=== PATIENT | female | born 1995 | race Asian ===

== ENCOUNTER 2023-06-06 05:59 | Inpatient (IN) | payer OTHER, SELFPAY ==
[2023-06-06] VITALS (23 sets, daily range): BP systolic 79–114; BP diastolic 43–73; PULSE 58–124; RESP 18; TEMP 36.7–37; O2SAT 96; BMI 28.0
[2023-06-06 07:12] LABS: Basophils Percent Auto 0.3 % (0.2-1.2); Eosinophils Absolute Auto 0.1 K/mm3 (0-0.3); Eosinophils Percent Auto 0.8 % (0-4.4); Hematocrit 35.2 % (37.0-47.0); Hemoglobin 10.8 g/dL (12.0-15.0); Immature Granulocyte Absolute 0.05 K/mm3 (0.00-0.031); Immature Granulocyte Percent A 0.5 % (0-0.5); Lymphocytes Absolute Auto 2.04 K/mm3 (0.9-3.2); Lymphocytes Percent Auto 21.4 % (18.3-44.2); Mean Corpuscular HGB Conc 30.7 g/dl (32-36); Mean Corpuscular Hemoglobin 25.7 pg (26-34); Mean Corpuscular Volume 83.6 fl (80-100); Mean Platelet Volume 10.6 fl (7.4-10.4); Monocytes Absolute Auto 0.7 K/mm3 (0.1-0.6); Monocytes Percent Auto 7.4 % (2.6-8.5); Neutrophils Absolute Auto 6.6 K/mm3 (1.3-6.7); Neutrophils Percent Auto 69.6 % (45.5-73.1); Platelet Count Result 198 k/mm3 (150-375); Red Blood Count 4.21 M/mm3 (4.2-5.4); Red Cell Distribution Width 16.6 % (11.5-14.5); White Blood Count 9.5 K/mm3 (4.5-10.0)
--- NOTE | 2023-06-06 07:17 | LDADM ---
This patient, Lizzy Cassy, was admitted to Labor/Delivery/Recovery 105 on 06/06/23 at 05:59. Plans for labor, pain management and were discussed with patient. Patient/family oriented to hospital policies and general routines including ID bracelet, bed and alarms, visiting hours, pain management, procedures, bathroom and other care routines, personal items, smoking policy, room service/diet and guest tray routines, infant security routines, and visiting hours. Patient/Family are encouraged to report perceived risks to care and to ask questions if they do not understand what they are told or what they should do. See OBIX for further documentation.
--- NOTE | 2023-06-06 08:29 | WPDOBADMIT ---
Obstetrics - Admit Note Admission Note: record reviewed. Additions to the history and/or subsequent changes in the physical findings follow. 27 y/o at 39 4/7 weeks here with contractions since 0500. Contractions painful but manageable. GBS neg. AVSS NST reactive TOCO: contractions every 4-5 min ABD soft, nontender, gravid, vertex EXT nontender Cervix 8/100/-1. AROM with clear fluid. A: IUP at term with labor. P: Anticipate .
[2023-06-06] MEDS: DEXTROSE 5%/LACTATED RINGERS 1,000 ML 100 ML IV CONT (09:36)
[2023-06-06] MEDS: OXYTOCIN 30 UNITS/NS 500 ML 30 UNITS/500 ML BAG 999 UNITS IV CONT (10:33)
--- NOTE | 2023-06-06 10:48 | PM.OBPRVD ---
OB - Delivery Note Procedure Delivery date: 06/06/23 Procedure: Induction method: None Delivery augmentation: Rupture of Membranes Delivery monitor: External FHT and External Uterine Route of delivery: Laceration Description: Perineal - 2nd Degree Delivery repair: vicryl (3-0) Specimen: Yes (Cord blood) Quantitative Blood Loss (ml): 120 Anesthesia type: Local (1% lidocaine) Disposition: PACU Complications: None Narrative: 27 y/o at 39 4/7 weeks gestation who presented to the hospital with contractions. Labor was diagnosed. Amniotomy was performed with return of clear fluid. Her labor progressed and her cervix dilated completely. She pushed with good effort and delivered the infant's head to the perineum, followed by the body. The nose and mouth were bulb suctioned. After a delay, the cord was clamped and cut. The infant was handed off the field. Cord blood was collected. The placenta delivered spontaneously and was grossly normal in appearance. The usual 3 vessel cord was noted. A second degree midline perineal laceration was sustained. This was infiltrated with 10 mL of 1% lidocaine and reapproximated using 3 0 Vicryl in the usual layered fashion. Excellent hemostasis resulted as did excellent reapproximation of the normal anatomy. Needle and instrument counts were correct. The patient was taken to recovery room in stable condition. The infant went to the nursery in stable condition. I was present and scrubbed for the entire delivery. Baby Date of : 06/06/23 Time of : 10:29 Weeks of gestation at delivery: 39 Infant gender: Male Weight (pounds): 8 Weight (ounces): 2 presentation: vertex position: Right Occiput Anterior Placenta delivery description: Spontaneous and Normal Configuration Cord Vessel Description: 3 Vessels and Delayed Cord Clamping score one minute: 9 score five minutes: 9
--- NOTE | 2023-06-06 10:50 | P.DS_ITS ---
DS: Admitting Diagnosis Discharge Date 06/08/23 Admitting Diagnosis IUP at term Labor DS: Discharge Diagnosis Discharge Diagnosis (1) (normal spontaneous vaginal delivery): Code(s): O80 - Encounter for full-term uncomplicated delivery Status: Acute OB - DS: Summary OB Procedures : None OB Procedures Intrapartum: Spontaneous Vag Delivery OB Procedures: : None Time Spent with Patient Time attestation: Total time spent providing and/or coordinating discharge services: DS: Data Data Completed and Pending Labs on day of discharge: Labs from last 24 hours 06/06/23 07:05 WBC 9.5 RBC 4.21 Hgb 10.8 L Hct 35.2 L MCV 83.6 MCH 25.7 L MCHC 30.7 L RDW 16.6 H Plt Count 198 MPV 10.6 H Immature Gran % (Auto) 0.5 Neut % (Auto) 69.6 Lymph % (Auto) 21.4 Bailey % (Auto) 7.4 Eos % (Auto) 0.8 Baso % (Auto) 0.3 Lymph # (Auto) 2.04 Bailey # (Auto) 0.7 H Eos # (Auto) 0.1 Baso # (Auto) 0.0 Abs Immat Gran (auto) 0.05 H Absolute Neuts (auto) 6.6 Absolute Nucleated RBC 0.0 Nucleated RBC % 0.0 RPR Pending Blood Type AB Positive Antibody Screen Negative Discharge Plan Discharge Attending physician on discharge: Guanako De Discharging Clinician: Guanako De Patient Disposition: Home, Self-Care Activity: pelvic rest Diet: regular Discharge Instructions: Call or return if temperature above 100.4? F, increased abdominal pain, increased vaginal bleeding or any new problems. Stand Alone Forms: General Discharge Information Follow-up/Referrals: Guanako De MD [Physician] - 6 Weeks Discharge Medications: New ibuprofen 600 mg tablet 600 mg PO Q6H PRN (Reason: cramps) Qty: 30 0RF Continued Daily [phone] mg-mcg-mg Combo Pack 1 pkg PO DAILY Date of admission: 06/06/23 05:59 Primary Care Provider: PHYSICIAN,CLARIFIER OPERATOR HELPER Admitting Provider: Guanako De Attending physician on admission: Guanako De Condition: Stable
[2023-06-06] MEDS: LIDOCAINE HCL 1% LOCAL INJ 20 ML VIAL (10:53)
[2023-06-06] MEDS: OXYTOCIN 30 UNITS/NS 500 ML 30 UNITS/500 ML BAG 125 UNITS IV CONT (11:16)
[2023-06-06] MEDS: BENZOCAINE 20% AER SPR (*SP) 56 GM CAN 1 SPRAY TOPICAL (13:05)
[2023-06-06] MEDS: WITCH HAZEL 40 PADS 1 PAD TOPICAL ×2 (13:05→14:44)
--- NOTE | 2023-06-06 13:33 | OBPPTRN ---
Patient transferred to post room # 284 via wheelchair. Oriented to unit, room, information board, rooming in, admission packet and security measures. Patient verbalizes understanding.
[2023-06-07 00:15] VITALS: BP 92/59; PULSE 78; RESP 18; TEMP 36.8; O2SAT 97
[2023-06-07 03:10] VITALS: BP 102/61; PULSE 71; RESP 18; TEMP 36.2; O2SAT 98
[2023-06-07 03:30] LABS: Hematocrit 34.2 % (37.0-47.0); Hemoglobin 10.5 g/dL (12.0-15.0)
[2023-06-07 07:50] VITALS: BP 93/57; PULSE 67; RESP 16; TEMP 37.1; O2SAT 98
--- NOTE | 2023-06-07 08:51 | PM.OBPNVD ---
OB - PN: Subj Subjective Date/time seen: 06/07/23 08:51 Narrative: Pain OK. Would like circumcision for son. OB - PN: Obj Data Labs 06/07/23 03:17 Labs: Laboratory Results - last 24 hr 06/07/23 03:17 Hgb 10.5 L Hct 34.2 L OB - PN A/P Plan day: 1 Comments: A: PPD#1, doing well. P: Routine care. Reviewed circ. Exam Psych: Other: AVSS ABD soft, nontender, fundus firm EXT nontender
[2023-06-07 09:44] LABS: Rapid Plasma Reagin Non-Reactive (NonReactive)
--- NOTE | 2023-06-07 12:49 | PC.NURSE ---
1210 Introductions were made, then consulted with patient to assess needs related to . Mother led the conversation with her?plans to feed?her and the?experience so far. Discussed use of nipple shield. Mom states that right breast is more of an an issue than the left and will call with next attempt to feed . Baby sleeping at present. Resources provided for inpatient and outpatient services with the feeding sheet, mom/baby guide and name written on the white board. Mother voiced understanding of information and will call if there is a request for assistance. Reported to the primary RN.
[2023-06-07 20:00] VITALS: BP 99/60; PULSE 71; RESP 16; TEMP 36.3; O2SAT 99
[2023-06-08 08:15] VITALS: BP 100/61; PULSE 68; RESP 18; TEMP 36.3; O2SAT 98
--- NOTE | 2023-06-08 08:29 | PM.OBPNVD ---
OB - PN: Subj Subjective Date/time seen: 06/08/23 08:29 Narrative: Pain OK. Would like to go home. OB - PN: Obj Data Labs 06/07/23 03:17 Labs: Laboratory Results - last 24 hr 06/06/23 07:05 RPR Non-reactive OB - PN A/P Plan Comments: A: PPD#2, doing well. P: Home to f/u 6 weeks. Exam Psych: Other: AVSS ABD soft, nontender, fundus firm EXT nontender
--- NOTE | 2023-06-08 11:07 | PCCCNOTE ---
Met with pt. this morning to discuss discharge planning. Pt.'s current D/C plan is to return home with her sig other, 2 year old baby, and baby. Pt. is independent with ADLs and ambulation. She has no medical equipment at home. She confirms that she has everything needed to safely bring baby home. Pt. requested resources regarding WIC, resources provided and questions answered. Pt. will D/C today and has no further D/C needs.
--- NOTE | 2023-06-08 13:31 | PC.NURSE ---
1015 Introductions were made, then consulted with patient to assess needs related to . Mother led the conversation with her?plans to feed?her infant and the?experience so far. Infant is currently meeting outcomes for weight, output, jaundice and feeding frequencies of 8-12 times in 24 hours. Mother declines any additional assistance/education at this time. Mother encouraged to call if there is a request for assistance. Mother did request WIC form to be completed and to have an insurance pump. Reported to the primary RN. 1210 Insurance pump form completed but mother wants to wait and sign until she checks with her insurance. She was on [employer] [facility] insurance 2.5 years ago and received a breast pump, she is now on [place]. She has her follow up appointment tomorrow, this RN has the paperwork filled out and mother to let the follow up RN know if she still needs a breast pump. 1250 WIC sheet faxed to [facility] and placed in mothers chart.
[2023-06-09 10:20] VITALS: BP 103/66; PULSE 76; RESP 18; TEMP 36.7; O2SAT 100
--- NOTE | 2023-06-09 11:43 | PC.NURSE ---
1015 Elder Klein RN who saw patient today for her follow up visit called to let this RN know that the patient declined the insurance pump from the hospital and she has ordered her own online.
== END 2023-06-08 12:52 | disposition home or self-care (01) | DRG 560 ==
LOC: ANHLDR 10:51 → ANHOB2 13:43
PROVIDERS: Admitting Provider Obstetrics & Gynecology; Visit Provider Obstetrics & Gynecology
DX: O70.1 Second degree perineal laceration during delivery (principal); Z37.0 Single live birth; Z3A.39 39 weeks gestation of pregnancy
CPT/HCPCS: 36415; 85014; 85018; 85025; 86592; 86850; 86900; 86901; A9270; J2590; J7121

== ENCOUNTER 2025-07-10 09:51 | Outpatient (CLI) | payer OTHER, SELFPAY ==
--- OUTSIDE RECORDS SUMMARY | 2025-07-10 10:16 | XMS_ITS | Encounter Summary ---
Author Organization [facility] Address [address] [place] [address] Care Team Providers Care Veneer Production Machine Operator Name Role Phone Janak Whiting DO Primary Care Provider [phone] Encounter Details Date Type Department Care Team (Late st Contact Info) Description 01/12/2008 Outpatient Historical [facility] Pediatric[facility] [address] [place] [address] [place] [address] [address] [facility] [address] [place] [address] Social History Tobacco Use Types Packs/Day Years Used Date Smoking Tobacco: Never Assessed Comments No Sex and Gender Information Value Date Recorded Sex Assigned at Not on file Legal Sex Female 4:50 AM STONE RIGGER Gender Identity Not on file Sexual Orientation Not on file documented as of this encounter Plan of Treatment Not on file documented as of this encounter Visit Diagnoses Not on filedocumented in this encounter Care Teams Veneer Production Machine Operator Relationship Specialty Start Date End Date Janak Whiting DO PCP - General 07/03/08 03/30/19 documented as of this encounter
--- OUTSIDE RECORDS SUMMARY | 2025-07-10 10:16 | XMS_ITS | Clinical Summary ---
Author Organization [email or web address] Address [address] [facility] [place] [address] Care Team Providers Care Shipping Agent Name Role Phone Bhargavi Vasquez MD Unavailable [phone] Becky Wilder MD Primary Care Provider [phone] Source Comments [email or web address],non-owned Affiliates and Associated Physician Practices is amultiple site organization consisting of ambulatory clinics and hospital sitesin [place], [place], [place] and [place]. This disclosure is being madepursuant to the Care Everywhere program and may not contain all information available regarding this patient. Last updated 18.[email or web address] Allergies No known active allergies Medications * Be aware that medications may not be up to date on this document. Alwaysverify current medications with the patient. Vit-Fe Usa-SK-Tvepa ( MULTI +DHA) 27-0.8-228 MG CAPSIndications : Take 1 capsule by mouth once daily Reasons: 30 capsule 12 0 Active ondansetron (Zofran) 4 MG tablet Take 1 (one) tablet by mouth every 6 hours as needed for Nausea/Vomitin g 30 tablet 1 2 Active Active Problems Problem Noted Date Diagnosed Date Depressive disorder 10/09/2022 Comments Yes Resolved Problems Problem Noted Date Diagnosed Date Resolved Date Encounter for elective induction of labor 11/13/2020 11/14/2020 Abnormal glucose affecting 08/21/2020 11/14/2020 Overview (08/21/2020): 08/21/2020: GCT = 183. GTT ordered. Supervision of other normal , antepartum 04/02/2020 11/14/2020 Overview (08/27/2020): 08/27/2020: size<dates on exam. ultrasound shows baby AGA. 33%ile Urinary tract infection in m other during first trimester of 04/02/2020 11/14/2020 Overview (05/02/2020): 05/02/2020: UTI in again. E coli - multi-drug resistant. Sensitive to Macrobid. Immunizations Immunization Administration Dates Next Due HEP A PEDS 2 DOSE 08/05/2007 HEP A VACCINE, ADULT 03/17/2006 HEP B VACCINE, ADULT 3 DOSE 01/22/2004, 3,07/24/2003 Human Papilloma Virus Keanu valent Vaccine 01/28/2011,09/03/2010,10/23/2009 INFLUENZA VACCINE, QUADR. (F LUZONE; FLULAVAL; FLUARIX; AFLURIA QUADRIVALENT; 6MO+), 0.5 ML (IIV4) 08/27/2020 INFLUENZA VACCINE, TRIV. (FL UZONE; FLULAVAL; FLUARIX; AFLURIA TRIVALENT; 6MO+), 0.5 ML (IIV3) 09/26/2017 MENINGOCOCCAL VACCINE 08/05/2007 MMR 08/25/2005,06/17/2005 POLIO IPV 09/22/2005,08/25/2005,06/17/2005 TDAP (7yrs+) 08/27/2020 TDAP, HISTORIC VACCINE 09/03/2010 Td (Adult), 2 Lf Tetanus Tox oid, Adsorbed, Pf 08/05/2007,03/17/2006,08/25/2005,06/17 Family History Medical History Relation Name Comments Thalassemia Brother 1 CVA Father High Cholesterol Father Hypertension Father Relation Name Status Comments Brother 1 Alive Brother 2 car accident Father Alive Mother Alive Social History Tobacco Use Types Packs/Day Years Used Date Smoking Tobacco: Former Cigarettes Smokeless Tobacco: Never Tobacco Cessation:Counseling Given: Not Answered Comments:her boyfriend smokes Alcohol Use Standard Drinks/Week Comments Not Currently 0 (1 standard drink = 0.6 oz pur e alcohol) Robards Depression Scale Answer Date Recorded Last EPDS Total Score Not on file 12/24/2020 The thought of harming myself has occurred to me . 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 Not on file Not on file Last Filed Vital Signs Vital Sign Reading Time Taken Comments Blood Pressure 110/76 11/03/2022 4:32 PM SQUASH CENTRE MANAGER Pulse 81 11/15/2020 7:40 AM SQUASH CENTRE MANAGER Temperature 36.8 C (98.2 F) 11/15/2020 7:40 AM SQUASH CENTRE MANAGER Respiratory Rate 18 11/15/2020 7:40 AM SQUASH CENTRE MANAGER Oxygen Saturation 98% 11/15/2020 7:40 AM SQUASH CENTRE MANAGER Inhaled Oxygen Concentration - - Weight 56.2 kg (124 lb) 11/03/2022 4:32 PM SQUASH CENTRE MANAGER Height 157.5 cm (5' 2) 11/03/2022 4:32 PM SQUASH CENTRE MANAGER Body Mass Index 22.68 11/03/2022 4:32 PM SQUASH CENTRE MANAGER Plan of Treatment Health Maintenance Due Date Last Done Comments HEPATITIS C SCREENING 09/12/2014 COVID-19 VACCINE ( season) 2024 06/30/2021 DEPRESSION SCREENING 11/22/2024 INFLUENZA VACCINE (#1) 2025 08/27/2020, 2016 PAP SMEAR 11/03/2025 11/03/2022, 10/22, 04/02/2020, Additional history exists DTAP/TDAP/TD VACCINES (6 - Td or Tdap) 08/27/2030 08/27/2020, 09/03/2010, 08/05/2007, Additional history exists ZOSTER VACCINE (1 of 2) 2046 Respiratory Syncytial Virus (RSV) Vaccine Pt: or over 60 yrs (1 - 1-dose 75+ series) 2071 HEPATITIS B VACCINE Completed 01/22/2004, 08/24/2003, 07/24/2003 MENINGOCOCCAL GROUPS A/C/Y/W VACCINE Aged Out 08/05/2007 No longer eligible based on patient's age to complete this topic HPV VACCINE Completed 01/28/2011, 08/22, 10/23/2009 HIV SCREENING Completed 04/02/2020 HIB VACCINE Aged Out No longer eligi ble based on patient's age to complete this topic MENINGOCOCCAL (Group B) VACCINE SHARED DECISION-MAKING Aged Out No longer eligible based on patient's age to complete this topic PNEUMOCOCCAL VACCINE Aged Out No long er eligible based on patient's age to complete this topic Procedures Procedure Name Priority Date/Time Associated Diagnosis Comments PAP CERVICAL CANCER SCREEN APT Routine 11/03/2022 4:39 PM SQUASH CENTRE MANAGER Well woman exam with routine gynecological exam examination or test, positive result STREP B ZARI Routine 10/15/2020 9:52 AM SQUASH CENTRE MANAGER Supervision of other normal , antepartum 36 weeks gestation of GTT 3 HR (100G) GESTATIONAL DIAGNOSTIC Routine 08/26/2020 10:52 AM CDT Abnormal glucose affecting OBSTETRIC PANEL Routine 04/02/2020 12:58 PM CDT Incidental from Last 3 Months or Most Recently Relevant to Health Maintenance Results * PAP CERVICAL CANCER SCREEN APT (11/03/2022 4:39 PM SQUASH CENTRE MANAGER) Age Gdln ACOG Testing 21-29 [facility] INSURANCE BILL ENTIRE ENDOCERVIX / Unknown 11/03/2022 4:39 PM SQUASH CENTRE MANAGER 11/04/2022 Narrative [facility] INSURANCE BILL - 11/11/2022 3:08 PM SQUASH CENTRE MANAGER Source.............Cervix;Endocervix LMP / Prev Treat...LTM=[id number] Other.............. No. of containers..01 ThinPrep Vial Resulting Agency Comment Lab Testing performed at: [address] [id number] Bhargavi Vasquez MD LAB - PATHOLOGY/CYTOLOGY ORD ERABLES Final Result [facility] INSURANCE BILL [address] [place] [address] * STREP B ZARI (10/15/2020 9:52 AM SQUASH CENTRE MANAGER) Strep B ZARI Negative Negative [facility] INSURANCE BILL Comment: Centers for Disease Control and Prevention (CDC) and [place] [employer] of Obstetricians and Gynecologists (ACOG) guidelines for prevention of group B streptococcal (GBS) disease specify co-collection of a vaginal and rectal swab specimen to maximize sensitivity of GBS detection. Per the CDC and ACOG, swabbing both the lower vagina and rectum substantially increases the yield of detection compared with sampling the vagina alone. . Penicillin G, ampicillin, or cefazolin are indicated for intrapartum prophylaxis of GBS colonization. Reflex susceptibility testing should be performed prior to use of clindamycin only on GBS isolates from penicillin-allergic women who are considered a high risk for anaphylaxis. Treatment with vancomycin without additional testing is warranted if resistance to clindamycin is noted. Microbiology MISCELLANEOUS SAMPLES / Unknown 10/15/2020 9:52 AM SQUASH CENTRE MANAGER 10/15/2020 Narrative Resulting Agency Comment Lab Testing performed at: [facility] [id number] Bhargavi Vasquez MD LAB - MICROBIOLOGY ORDERABLE S Final Result Performing Organization Address City/State/[facility] Co de Phone Number [facility] INSURANCE BILL [address] [place] [address] * GTT 3 HR (100G) GESTATIONAL DIAGNOSTIC (08/26/2020 10:52 AM CDT) Glucose Fasting Gest Tolerance 83 65 - 94 mg/dL [facility] INSURANCE BILL GTT1Hr 146 65 - 179 mg/dL [facility] INSURANCE BILL Glucose - 2 hour 104 65 - 154 mg/dL [facility] INSURANCE BILL GTT 3Hr 84 65 - 139 mg/dL [facility] INSURANCE BILL Note [facility] INSURANCE BILL Comment: For diagnosis of gestational diabetes, at least two values must meet or exceed normal limits, which is based on 100 gm of oral glucose challenge. FASTING Blood BLOOD SPECIMEN / Unknown 08/26/2020 10:52 AM CDT 08/26/2020 Narrative Resulting Agency Comment Lab Testing performed at: [facility] [id number] Bhargavi Vasquez MD LAB - CHEMISTRY ORDERABLES F inal Result [facility] INSURANCE BILL [address] [place] [address] * OBSTETRIC PANEL (04/02/2020 12:58 PM CDT) Hepatitis B Virus Surface Antigen Negative Negative [facility] INSURANCE BILL RPR Non Reactive Non Reactive [facility] INSURANCE BILL Rubella Antibody 8.46 Immune >0.99 index [facility] INSURANCE BILL Comment: Non-immune <0.90 Equivocal 0.90 - 0.99 Immune >0.99 ABO AB [facility] INSURANCE BILL Rh Type Positive [facility] INSURANCE BILL Comment: Please note: Prior records for this patient's ABO / Rh type are not available for additional verification. Antibody Screen Negative Negative [facility] INSURANCE BILL HIV Screen 4th Generation w Reflex Non Reactive Non Reactive [facility] INSURANCE BILL WBC 9.3 3.4 - 10.8 x10E3/uL [facility] INSURANCE BILL RBC 4.55 3.77 - 5.28 x10E6/uL [facility] INSURANCE BILL Hemoglobin 14.1 11.1 - 15.9 g/dL [facility] INSURANCE BILL Hematocrit 42.4 34.0 - 46.6 % [facility] INSURANCE BILL MCV 93 79 - 97 fL [facility] INSURANCE BILL MCH 31.0 26.6 - 33.0 pg [facility] INSURANCE BILL MCHC 33.3 31.5 - 35.7 g/dL [facility] INSURANCE BILL RDW 12.6 11.7 - 15.4 % [facility] INSURANCE BILL Platelet Count 195 150 - 450 x10E3/uL [facility] INSURANCE BILL Granulocytes % 71 Not Estab. % [facility] INSURANCE BILL Lymphocytes % 21 Not Estab. % [facility] INSURANCE BILL Monocytes % 6 Not Estab. % [facility] INSURANCE BILL Eosinophils % 1 Not Estab. % [facility] INSURANCE BILL Basophils % 1 Not Estab. % [facility] INSURANCE BILL Immature Cells NOT NEEDED [facility] INSURANCE BILL Comment:Ancillary determined the test is not needed. Granulocytes Absolute 6.7 1.4 - 7.0 x10E3/uL [facility] INSURANCE BILL Lymphocytes Absolute 1.9 0.7 - 3.1 x10E3/uL [facility] INSURANCE BILL Monocytes Absolute 0.5 0.1 - 0.9 x10E3/uL [facility] INSURANCE BILL Eosinophils Absolute 0.1 0.0 - 0.4 x10E3/uL [facility] INSURANCE BILL Basophils Absolute 0.1 0.0 - 0.2 x10E3/uL [facility] INSURANCE BILL Immature Granulocytes 0 Not Estab. % [facility] INSURANCE BILL Immature Granulocytes Absolute 0.0 0.0 - 0.1 x10E3/uL [facility] INSURANCE BILL nRBC NOT NEEDED [facility] INSURANCE BILL Comment:Ancillary determined the test is not needed. Comment Hematology NOT NEEDED [facility] INSURANCE BILL Comment: FASTING Ancillary determined the test is not needed. Blood BLOOD SPECIMEN / Unknown 04/02/2020 12:58 PM CDT 04/02/2020 Narrative Resulting Agency Comment Lab Testing performed at: [facility] [address] [facility] [phone] [place] Bhargavi Vasquez MD LAB - CHEMISTRY ORDERABLES F inal Result [facility] INSURANCE BILL [address] [place] [address] from Last 3 Months or Most Recently Relevant to Health Maintenance Additional Health Concerns Infection Onset Date Last Indicated ESBL GNR 04/01/2020 04/01/2020 MDRO 04/01/2020 04/01/2020 Insurance [place]ICAID [facility] COMMUNITY PLAN Advance Directives * Full Code (Latest Code Status on File) Date Activated Date Inactivated Comments 11/13/2020 8:36 AM 11/15/2020 3:18 PM Care Teams Shipping Agent Relationship Specialty Start Date End Date Becky Wilder MD [address] [place] [address] PCP - General Internal Medicine 11/03/22 Bhargavi Vasquez MD [address] [place] [address] Continuous Yarn Dyeing Machine Operator Obstetrics and Gynecology 04/02/20
--- OUTSIDE RECORDS SUMMARY | 2025-07-10 10:16 | XMS_ITS | Encounter Summary ---
Author Organization [facility] Address [address] [place] [address] Care Team Providers Care Blind Teacher Name Role Phone Janak Whiting DO Primary Care Provider [phone] Encounter Details Date Type Department Care Team (Late st Contact Info) Description 08/05/2007 Outpatient Historical [facility] [address] [place] [address] Janak Whiting DO [address] [place] [address] Social History Tobacco Use Types Packs/Day Years Used Date Smoking Tobacco: Never Assessed Comments Unknown Sex and Gender Information Value Date Recorded Sex Assigned at Not on file Legal Sex Female 4:50 AM URGENT CARE NURSE PRACTITIONER Gender Identity Not on file Sexual Orientation Not on file documented as of this encounter Plan of Treatment Not on file documented as of this encounter Procedures Procedure Name Priority Date/Time Associated Diagnosis Comments CHG MENINGOCOCCAL CONJUG VACCINE IM VFC 08/05/2007 12:00 AM CDT CHG TDAP VACCINE >7 YO IM VFC 08/05/2007 12:00 AM CDT CHG HEPATITIS A VACCINE PED ADOL IM 2 DOSE VFC 08/05/2007 12:00 AM CDT documented in this encounter Visit Diagnoses Not on filedocumented in this encounter Care Teams Blind Teacher Relationship Specialty Start Date End Date aJnak Whiting DO PCP - General 07/03/08 03/30/19 documented as of this encounter
--- OUTSIDE RECORDS SUMMARY | 2025-07-10 10:16 | XMS_ITS | Encounter Summary ---
Author Organization [facility] Address [address] [place] [address] Care Team Providers Care Circulation Tender Name Role Phone Janak Whiting DO Primary Care Provider +1- [phone] Encounter Details Date Type Department Care Team (Late st Contact Info) Description 01/12/2008 Outpatient Historical [facility] Pediatrics [facility] [address] [place] [address] [place] [address] [place] [address] [facility] [address] [place] [address] Social History Tobacco Use Types Packs/Day Years Used Date Smoking Tobacco: Never Assessed Comments No Sex and Gender Information Value Date Recorded Sex Assigned at Not on file Legal Sex Female 4:50 AM FEATHER DRYING MACHINE OPERATOR Gender Identity Not on file Sexual Orientation Not on file documented as of this encounter Plan of Treatment Not on file documented as of this encounter Visit Diagnoses Not on filedocumented in this encounter Care Teams Circulation Tender Relationship Specialty Start Date End Date Janak Whiting DO PCP - General 07/03/08 03/30/19 documented as of this encounter
--- OUTSIDE RECORDS SUMMARY | 2025-07-10 10:16 | XMS_ITS | Encounter Summary ---
Author Organization [facility] Address [address] [place] [address] Care Team Providers Care Operator Technician Name Role Phone Janak Whiting DO Primary Care Provider +1- [phone] Encounter Details Date Type Department Care Team (Late st Contact Info) Description 03/17/2006 Outpatient Historical [facility] Pediatrics [place] [address] [place] [address] Janak Whiting DO [address] [place] [address] Social History Tobacco Use Types Packs/Day Years Used Date Smoking Tobacco: Never Assessed Comments Unknown Sex and Gender Information Value Date Recorded Sex Assigned at Not on file Legal Sex Female 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
--- OUTSIDE RECORDS SUMMARY | 2025-07-10 10:16 | XMS_ITS | Clinical Summary ---
Author Organization [facility] Administrative Offices Address [address] [place] [address] Care Team Providers Care Business Database Analyst Name Role Phone Unavailable Primary Care Provider Unavailabl e Allergies No known active allergies Medications No known medications Active Problems No known active problems Resolved Problems Problem Noted Date Diagnosed Date Resolved Date Other acne 01/12/2008 10/23/2009 Well Child Check 08/05/07 08/05/200712/2008 Immunizations Immunization Administration Dates Next Due (IPOL)(6 WKS AND UP) POLIOVI BERHANE VACCINE, INACTIVATED (IPV), 3 DOSE, SUBCUT OR IM 09/22/2005,08/25/2005,06/17/2005 (M-M-R II/PRIORIX)(12 MO UP) MEASLES, MUMPS AND RUBELLA VIRUS VACCINE, 0.5 ML IM/SUBCUT 08/25/2005,06/17/2005 (TDVAX)(7 YRS UP) TETANUS AN D DIPHTHERIA TOXOIDS, ADSORBED (2 LF OF TETANUS TOXOID AND 2 LF OF DIPHTHERIA TOXOID), 0.5ML (PF), IM 08/05/2007,03/17/2006,08/25/2005,06/17 HPV Vaccine 3 Dose IM VFC 01/28/2011,09/03/2010, 10/23/2009 Hepatitis A Vaccine 08/05/2007,03/17/2006 Hepatitis B Vaccine 01/22/2004,08/24/2003,2002 History of Chickenpox 11/20/2006 Meningococcal ACWY Vaccine, Unspecified Formulation 08/05/2007 Tdap Vaccine > 7 Yo IM VFC 09/03/2010 Social History Tobacco Use Types Packs/Day Years Used Date Smoking Tobacco: Never Alcohol Use Standard Drinks/Week Comments Not Asked 0 (1 standard drink = 0.6 oz pur e alcohol) Comments No Sex and Gender Information Value Date Recorded Sex Assigned at Not on file Legal Sex Female 4:50 AM MEDICAL HISTORIAN Gender Identity Not on file Sexual Orientation Not on file Last Filed Vital Signs Vital Sign Reading Time Taken Comments Blood Pressure 99/53 01/28/2011 2:13 PM MEDICAL HISTORIAN Pulse 107 01/28/2011 2:13 PM MEDICAL HISTORIAN Temperature 36.5 C (97.7 F) 01/28/2011 2:13 PM MEDICAL HISTORIAN Respiratory Rate - - Oxygen Saturation - - Inhaled Oxygen Concentration - - Weight 49.4 kg (109 lb) 01/28/2011 2:13 PM MEDICAL HISTORIAN Height 157.5 cm (5' 2) 01/28/2011 2:13 PM MEDICAL HISTORIAN Body Mass Index 19.94 01/28/2011 2:13 PM MEDICAL HISTORIAN Plan of Treatment Health Maintenance Due Date Last Done Comments CERVICAL CANCER SCREENING 2017 HPV/Cotest (21-29) 2017 PAP SMEAR 2017 DTAP/TDAP/TD VACCINES (5 - T d or Tdap) 09/03/2020 09/03/2010, 08/05/2007, 03/17/2006, Additional history exists INFLUENZA VACCINE (#1) 2025 HEPATITIS B VACCINES Completed 01/22/2004, 08/24/2003, 07/24/2003 HPV VACCINES Completed 01/28/2011, 08/22, 10/23/2009
--- OUTSIDE RECORDS SUMMARY | 2025-07-10 10:16 | XMS_ITS | Encounter Summary ---
Author Organization [facility] Address [address] [place] [address] Care Team Providers Care Wedding Coordinator Name Role Phone Janak Whiting DO Primary Care Provider +1- [phone] Encounter Details Date Type Department Care Team (Late st Contact Info) Description 01/12/2008 Outpatient Historical [facility] Pediatrics [place] [address] [place] [address] Janak Whiting DO [address] [facility] [address] [place] [address] Social History Tobacco Use Types Packs/Day Years Used Date Smoking Tobacco: Never Assessed Comments No Sex and Gender Information Value Date Recorded Sex Assigned at Not on file 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
[2025-07-10 11:53] LABS: Hematocrit 35.2 % (37.0-47.0); Hemoglobin 10.7 g/dL (12.0-15.0); Mean Corpuscular HGB Conc 30.4 g/dl (32-36); Mean Corpuscular Hemoglobin 27.5 pg (26-34); Mean Corpuscular Volume 90.5 fl (80-100); Platelet Count Result 205 k/mm3 (150-375); Red Blood Count 3.89 M/mm3 (4.2-5.4); White Blood Count 12.3 K/mm3 (4.5-10.0)
[2025-07-10 12:14] LABS: Glucose 1 Hour PP 50gm Dose 171 mg/dL
[2025-07-10 12:49] LABS: HIV 1/2 Ab P24 Ag Result Negative (Negative)
[2025-07-10 13:44] LABS: Syphilis IgG/IgM Antibody Non-Reactive (Nonreactive)
== END 2025-07-10 09:52 | disposition home or self-care (01) ==
LOC: ANHLAB 09:52
PROVIDERS: Visit Provider Nurse Practitioner Family
DX: Z34.90 Encounter for supervision of normal pregnancy, unspecified, unspecified trimester (principal)
CPT/HCPCS: 36415; 82947; 85027; 86593; 86703; G0432

== ENCOUNTER 2025-07-24 07:41 | Outpatient (CLI) | payer OTHER, SELFPAY ==
--- OUTSIDE RECORDS SUMMARY | 2025-07-24 07:45 | XMS_ITS | Clinical Summary ---
Author Organization [facility] Address [address] [facility] [place] [address] Care Team Providers Care Feather Maker Name Role Phone Bhargavi Vasquez MD Unavailable [phone] Becky Wilder MD Primary Care Provider [phone] Source Comments [facility],non-owned Affiliates and Associated Physician Practices is amultiple site organization consisting of ambulatory clinics and hospital sitesin [place], [place]. This disclosure is being madepursuant to the Care Everywhere program and may not contain all information available regarding this patient. Last updated 18.[facility] Allergies No known active allergies Medications * Be aware that medications may not be up to date on this document. Alwaysverify current medications with the patient. Vit-Fe Uxn-BF-Osber ( MULTI +DHA) 27-0.8-228 MG CAPSIndications : [...] drink = 0.6 oz pur e alcohol) [place] Depression Scale Answer Date Recorded Last EPDS Total Score Not on file 12/24/2020 The thought of harming myself has occurred to me . 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 on file Not on file Not on file Last Filed Vital Signs Vital Sign Reading Time Taken Comments Blood Pressure 110/76 11/03/2022 4:32 PM ACURA SALES CONSULTANT Pulse 81 11/15/2020 7:40 AM ACURA SALES CONSULTANT Temperature 36.8 C (98.2 F) 11/15/2020 7:40 AM ACURA SALES CONSULTANT Respiratory Rate 18 11/15/2020 7:40 AM ACURA SALES CONSULTANT Oxygen Saturation 98% 11/15/2020 7:40 AM ACURA SALES CONSULTANT Inhaled Oxygen Concentration - - Weight 56.2 kg (124 lb) 11/03/2022 4:32 PM ACURA SALES CONSULTANT Height 157.5 cm (5' 2) 11/03/2022 4:32 PM ACURA SALES CONSULTANT Body Mass Index 22.68 11/03/2022 4:32 PM ACURA SALES CONSULTANT Plan of Treatment Health Maintenance Due Date [...] CANCER SCREEN APT Routine 11/03/2022 4:39 PM ACURA SALES CONSULTANT Well woman exam with routine gynecological exam examination or test, positive result STREP B ZARI Routine 10/15/2020 9:52 AM ACURA SALES CONSULTANT Supervision of other normal , antepartum 36 weeks gestation of GTT 3 HR (100G) GESTATIONAL DIAGNOSTIC Routine 08/26/2020 10:52 AM CDT Abnormal glucose affecting OBSTETRIC PANEL Routine 04/02/2020 12:58 PM CDT Incidental from Last 3 Months or Most Recently Relevant to Health Maintenance Results * PAP CERVICAL CANCER SCREEN APT (11/03/2022 4:39 PM ACURA SALES CONSULTANT) Age Gdln ACOG Testing 21-29 [facility] INSURANCE BILL ENTIRE ENDOCERVIX / Unknown 11/03/2022 4:39 PM ACURA SALES CONSULTANT 11/04/2022 Narrative [facility] INSURANCE BILL - 11/11/2022 3:08 PM ACURA SALES CONSULTANT Source.............Cervix;Endocervix LMP / Prev Treat...[id number] Other.............. No. of containers..01 ThinPrep Vial Resulting Agency Comment Lab Testing performed at: [address] [id number] Bhargavi Vasquez MD LAB - PATHOLOGY/CYTOLOGY ORD ERABLES Final Result [facility] INSURANCE BILL [address] [place] [address] * STREP B ZARI (10/15/2020 9:52 AM ACURA SALES CONSULTANT) Strep B ZARI Negative Negative [facility] INSURANCE BILL Comment: Centers for Disease Control and Prevention (CDC) and [place] [employer] of Obstetricians and Gynecologists (ACOG) guidelines [...] MISCELLANEOUS SAMPLES / Unknown 10/15/2020 9:52 AM ACURA SALES CONSULTANT 10/15/2020 Narrative Resulting Agency Comment Lab Testing performed at: [facility] [id number] Bhargavi Vasquez MD LAB - MICROBIOLOGY ORDERABLE S Final Result Performing Organization Address City/State/[facility] Co de Phone Number [facility] INSURANCE BILL [address] [place] [address] * GTT 3 HR (100G) GESTATIONAL DIAGNOSTIC [...] Resulting Agency Comment Lab Testing performed at: [facility] [id number] Bhargavi Vasquez MD LAB - CHEMISTRY ORDERABLES F inal Result [facility] INSURANCE BILL [address] [place] [address] * OBSTETRIC PANEL (04/02/2020 12:58 PM CDT) [...] Resulting Agency Comment [facility]: [facility] [address] [facility] [id number] [place] Bhargavi Vasquez MD LAB - CHEMISTRY ORDERABLES F inal Result [facility] INSURANCE BILL [address] [place] [address] from Last 3 Months or Most Recently Relevant to Health Maintenance Additional Health Concerns Infection Onset Date Last Indicated ESBL GNR 04/01/2020 04/01/2020 MDRO 04/01/2020 04/01/2020 Insurance [place] [employer] MED[place] [facility] COMMUNITY [facility]AN Advance Directives * Full Code (Latest Code Status on File) Date Activated Date Inactivated Comments 11/13/2020 8:36 AM 11/15/2020 3:18 PM Care Teams Feather Maker Relationship Specialty Start Date End Date Becky Wilder MD [address] [place] [address] PCP - General Internal Medicine 11/03/22 Bhargavi Vasquez MD [address] [place] [address] Health Safety Manager Obstetrics and Gynecology 04/02/20
--- OUTSIDE RECORDS SUMMARY | 2025-07-24 07:45 | XMS_ITS | Encounter Summary ---
Author Organization [facility] Address [address] [place] [address] Care Team Providers Care Care Specialist Name Role Phone Janak Whiting DO Primary Care Provider [phone]- [phone] Encounter Details Date Type Department Care Team (Late st Contact Info) Description 01/12/2008 Outpatient Historical [facility] Pediatrics [facility] [address] [place] [address] [place] [address] [place] [facility] [address] [place] [address] Social History Tobacco Use Types Packs/Day Years Used Date Smoking Tobacco: Never Assessed Comments No Sex and Gender Information Value Date Recorded Sex Assigned at Not on file Legal Sex Female 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
--- OUTSIDE RECORDS SUMMARY | 2025-07-24 07:45 | XMS_ITS | Encounter Summary ---
Author Organization [facility] Address [address] [place] [address] Care Team Providers Care Linux Server Engineer Name Role Phone Janak Whiting DO Primary Care Provider [phone]- [phone] Encounter Details Date Type Department Care Team (Late st Contact Info) Description 01/12/2008 Outpatient Historical [facility] Pediatrics [facility] [address] [place] [address] [place] [address] [place] [address] [facility] [address] [place] [address] Social History Tobacco Use Types Packs/Day Years Used Date Smoking Tobacco: Never Assessed Comments No Sex and Gender Information Value Date Recorded Sex Assigned at Not on file Legal Sex Female 4:50 AM POINT OF CARE TECHNICIAN Gender Identity Not on file Sexual Orientation Not on file documented as of this encounter Plan of Treatment Not on file documented as of this encounter Visit Diagnoses Not on filedocumented in this encounter Care Teams Linux Server Engineer Relationship Specialty Start Date End Date Janak Whiting DO PCP - General 07/03/08 03/30/19 documented as of this encounter
--- OUTSIDE RECORDS SUMMARY | 2025-07-24 07:45 | XMS_ITS | Encounter Summary ---
Author Organization [facility] Address [address] [place] [address] Care Team Providers Care Station Installer Name Role Phone Janak Whiting DO Primary Care Provider +1- [phone] Encounter Details Date Type Department Care Team (Late st Contact Info) Description 08/05/2007 Outpatient Historical [facility] Pediatrics [place] [place] [address] Janak Whiting DO [address] [place] [address] Social History Tobacco Use Types Packs/Day Years Used Date Smoking Tobacco: Never Assessed Comments Unknown Sex and Gender Information Value Date Recorded Sex Assigned at Not on file Legal Sex Female 4:50 AM CASE TECHNICIAN Gender Identity Not on file Sexual [...] on filedocumented in this encounter Care Teams Station Installer Relationship Specialty Start Date End Date Janak Whiting DO PCP - General 07/03/08 03/30/19 documented as of this encounter
--- OUTSIDE RECORDS SUMMARY | 2025-07-24 07:45 | XMS_ITS | Clinical Summary ---
Author Organization [facility] Administrative Offices Address [address] [place] [address] Care Team Providers Care Slipper Maker Name Role Phone Unavailable Primary Care Provider [...] on file Legal Sex Female 4:50 AM CABLE DRILLER Gender Identity Not on file Sexual Orientation Not on file Last Filed Vital Signs Vital Sign Reading Time Taken Comments Blood Pressure 99/53 01/28/2011 2:13 PM CABLE DRILLER Pulse 107 01/28/2011 2:13 PM CABLE DRILLER Temperature 36.5 C (97.7 F) 01/28/2011 2:13 PM CABLE DRILLER Respiratory Rate - - Oxygen Saturation - - Inhaled Oxygen Concentration - - Weight 49.4 kg (109 lb) 01/28/2011 2:13 PM CABLE DRILLER Height 157.5 cm (5' 2) 01/28/2011 2:13 PM CABLE DRILLER Body Mass Index 19.94 01/28/2011 2:13 PM CABLE DRILLER Plan of Treatment Health Maintenance Due Date Last Done Comments CERVICAL CANCER SCREENING 2017 HPV/Cotest (21-29) 2017 PAP SMEAR 2017 DTAP/TDAP/TD VACCINES (5 - T d or Tdap) 09/03/2020 09/03/2010, 08/05/2007, 03/17/2006, Additional history exists INFLUENZA VACCINE (#1) 2025 HEPATITIS B VACCINES Completed 01/22/2004, 08/24/2003, 07/24/2003 HPV VACCINES Completed 01/28/2011, 08/22, 10/23/2009
--- OUTSIDE RECORDS SUMMARY | 2025-07-24 07:45 | XMS_ITS | Encounter Summary ---
Author Organization [facility] Address [address] [place] [address] Care Team Providers Care Folder Seamer Automatic Name Role Phone Janak Whiting DO Primary Care Provider +1- [phone] Encounter Details Date Type Department Care Team (Late st Contact Info) Description 01/12/2008 Outpatient Historical [facility] Pediatrics [place] [address] [place] [address] Janak Whiting DO [address] [facility] [address] [facility] [address] [place] [address] Social History Tobacco Use Types Packs/Day Years Used Date Smoking Tobacco: Never Assessed Comments No Sex and Gender Information Value Date Recorded Sex Assigned at Not on file Legal Sex Female 4:50 AM FIELD ADVISOR Gender Identity Not on file Sexual Orientation Not on file documented as of this encounter Plan of Treatment Not on file documented as of this encounter Visit Diagnoses Not on filedocumented in this encounter Care Teams Folder Seamer Automatic Relationship Specialty Start Date End Date Janak Whiting DO PCP - General 07/03/08 03/30/19 documented as of this encounter
--- OUTSIDE RECORDS SUMMARY | 2025-07-24 07:45 | XMS_ITS | Encounter Summary ---
Author Organization [facility] Address [address] [place] [address] Care Team Providers Care Denture Packer Name Role Phone Janak Whiting DO Primary Care Provider +1- [phone] Encounter Details Date Type Department Care Team (Late st Contact Info) Description 03/17/2006 Outpatient Historical [facility] Pediatrics [address] [place] [address] [place] [address] Janak Whiting DO [address] [place] [address] Social History Tobacco Use Types Packs/Day Years Used Date Smoking Tobacco: Never Assessed Comments Unknown Sex and Gender Information Value Date Recorded Sex Assigned at Not on file Legal 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
[2025-07-24 08:31] LABS: Glucose Fasting Gestational 102 mg/dL (>/=95)
[2025-07-24 10:20] LABS: Glucose 1 Hour Gest 205 mg/dL (>/=180)
[2025-07-24 11:04] LABS: Glucose 2 Hour Gest 216 mg/dL (>/= 155)
[2025-07-24 12:08] LABS: Glucose 3 Hour Gest 127 mg/dL (>/=140)
== END 2025-07-24 07:42 | disposition home or self-care (01) ==
LOC: ANHLAB 07:43
PROVIDERS: Visit Provider Obstetrics & Gynecology
DX: Z34.90 Encounter for supervision of normal pregnancy, unspecified, unspecified trimester (principal); Z3A.00 Weeks of gestation of pregnancy not specified
CPT/HCPCS: 36415; 82951; 82952

== ENCOUNTER 2025-09-24 09:44 | Outpatient (RCR) | payer OTHER, SELFPAY ==
[2025-08-13 12:20] VITALS: BP 90/54; PULSE 100
[2025-08-16 10:30] VITALS: BP 95/60; PULSE 77
[2025-08-21 09:08] VITALS: BP 97/59; PULSE 102
[2025-08-24 09:08] VITALS: BP 94/54; PULSE 87
[2025-08-27 14:46] VITALS: BP 91/57; PULSE 89
[2025-08-30 09:14] VITALS: BP 96/58; PULSE 84
[2025-09-03 12:31] VITALS: BP 96/52; PULSE 90
[2025-09-06 09:02] VITALS: BP 94/58; PULSE 90
[2025-09-11 09:07] VITALS: BP 99/63; PULSE 74
[2025-09-14 09:21] VITALS: BP 103/66; PULSE 91
[2025-09-18 10:16] VITALS: BP 89/57; PULSE 87
[2025-09-21 09:25] VITALS: BP 97/56; PULSE 88
--- NOTE | ~2025-09-24 | US_ITS ---
EXAMINATION: US OB BPP wo non-stress DATE: 09/21/2025 09:48 INDICATION: Maternal gestational diabetes TECHNIQUE: Real-time pelvic ultrasound was performed. The interpreting radiologist was not present for the study. COMPARISON: None. FINDINGS: There is a single living fetus in vertex presentation. The placenta is posterior. heart rate is 131 beats per minute (bpm). Normal deepest vertical amniotic fluid pocket measuring 4.6 cm. Biophysical profile performed by the technologist: breathing (30 sec sustained breathing in 30 minutes): 2 out of 2 movement (3 gross body movements in 30 minutes): 2 out of 2 tone (one episode of gveeuxz-mcgjuzppq-qaagyls limb movement): 2 out of 2 Amniotic fluid pocket (2 cm): 2 out of 2 Total score: 8 out of 8 IMPRESSION: 1. Single living fetus in vertex presentation with heart rate of 131 bpm. 2. Biophysical profile 8 out of 8. Reviewed, dictated and finalized at location A.
[2025-09-24 10:21] VITALS: BP 106/62; PULSE 84
== END 2025-09-29 10:45 | disposition other institution (70) ==
LOC: ANHOBOP 09:44
PROVIDERS: Visit Provider Obstetrics & Gynecology
DX: O24.419 Gestational diabetes mellitus in pregnancy, unspecified control (principal); Z3A.33 33 weeks gestation of pregnancy; Z3A.35 35 weeks gestation of pregnancy; Z3A.36 36 weeks gestation of pregnancy; Z3A.37 37 weeks gestation of pregnancy; Z3A.38 38 weeks gestation of pregnancy; Z3A.39 39 weeks gestation of pregnancy
CPT/HCPCS: 59025; 76819

== ENCOUNTER 2025-09-26 06:35 | Inpatient (IN) | payer OTHER, SELFPAY ==
[2025-09-26] VITALS (23 sets, daily range): BP systolic 83–106; BP diastolic 39–66; PULSE 57–89; RESP 16–18; TEMP 36.4–37.3; O2SAT 97–98; BMI 26.8
[2025-09-26 08:18] LABS: Hematocrit 35.4 % (37.0-47.0); Hemoglobin 11.3 g/dL (12.0-15.0); Immature Granulocyte Percent A 0.9 % (0-0.5); Lymphocytes Absolute Auto 1.53 K/mm3 (0.9-3.2); Mean Corpuscular HGB Conc 31.9 g/dl (32-36); Mean Corpuscular Hemoglobin 28.0 pg (26-34); Mean Corpuscular Volume 87.6 fl (80-100); Nucleated Red Blood Cells Absolute Auto 0.000 K/mm3 (0.0-0.012); Nucleated Red Blood Cells Perc 0.0 % (0.0-0.2); Platelet Count Result 164 k/mm3 (150-375); Red Blood Count 4.04 M/mm3 (4.2-5.4); White Blood Count 8.6 K/mm3 (4.5-10.0)
[2025-09-26] MEDS: LACTATED RINGERS 1,000 ML 125 ML IV CONT (08:19)
[2025-09-26] MEDS: OXYTOCIN 30 UNITS/NS 500 ML 30 UNITS/500 ML BAG IV CONT (08:19)
--- NOTE | 2025-09-26 08:34 | LDADM ---
This patient, Lizzy Cassy, was admitted to Labor/Delivery/Recovery 103 on 09/26/25 at 06:35. Plans for labor, pain management and were discussed with patient. Patient/family oriented to hospital policies and general routines including ID bracelet, bed and alarms, visiting hours, pain management, procedures, bathroom and other care routines, personal items, smoking policy, room service/diet and guest tray routines, infant security routines, and visiting hours. Patient/Family are encouraged to report perceived risks to care and to ask questions if they do not understand what they are told or what they should do. See OBIX for further documentation.
[2025-09-26 08:54] LABS: Syphilis IgG/IgM Antibody Non-Reactive (Nonreactive)
--- NOTE | 2025-09-26 09:00 | PM.IMHP ---
H&P: HPI History of Present Illness Date/Time: 09/26/25 09:00 Chief Complaint: Here for induction of labor. Narrative: 30 y/o at 40 weeks gestation here for scheduled induction of labor. A1DM, well-controlled. GBS neg. Last US at 37 weeks showed EFW 6#15oz, vertex. Review of Systems Review of Systems: All systems reviewed & are unremarkable except as noted in HPI and below PMFSH Surgical History Surgical History H/O wisdom tooth extraction H/O breast augmentation Family History Family History Father Hypertension Father Cerebrovascular accident Social History Social History Smoking status: Never smoker Substance use: current Lack of Transportation: No Lack of Food: Never True Current Housing: I Have Housing Concerned About Future Housing: No Difficulty Paying Gas/Electric Bills: No Difficulty Paying for Meds: No Currently Unemployed: No Education: Bachelor's Degree Difficulty w/ Childcare or Family Care: No Spiritual care concerns: No Meds Home Medications and Allergies Home Medications ?Medication ?Instructions ?Recorded ?Confirmed ?Type vits no.126-ferrous fum 1 tablet PO DAILY 08/01/25 09/24/25 History 28 mg iron-folic acid 800 mcg tablet (Classic ) pen needle, diabetic 32 gauge x #100 ea 08/13/25 09/26/25 Rx 5/32 (Desiree Pen Needle) Dexcom G7 Sensor (blood-glucose #1 ea 09/11/25 09/26/25 Rx sensor) Allergies Allergy/AdvReac Type Severity Reaction Status Date / Time No Known Allergies Allergy Verified 09/26/25 08:35 Vital Signs Vital Signs - 24 hr 09/26/25 08:15 09/26/25 08:17 09/26/25 08:27 Pulse Rate 72 86 Blood Pressure 94/57 L 88/45 L Oxygen Delivery Room Air 09/26/25 08:31 Pulse Rate 77 Blood Pressure 96/57 L Oxygen Delivery Exam Const: Other: Well-developed, well-nourished female in no acute distress. Neck: Other: Neck: Trachea midline, no thyromegaly or masses. Resp: Other: Lungs: Normal respiratory effort. Clear to auscultation bilaterally. Cardio: Other: Heart: Regular rate and rhythm with normal S1-S2. GI: Other: ABD: Soft, nontender, nondistended, gravid. No guarding or rebound tenderness. No hepatosplenomegaly. NST reactive. TOCO: irregular contractions. : Other: Cervix: 5/50/-2. AROM with clear fluid. Vertex. Back/Spine/Pelvis: Other: Back: No CVA tenderness. Skin: Other: Skin: No lesions, rashes or ulcers noted. Extrem: Other: Extremities: nontender with no edema Psych: Other: Mental status grossly normal, with normal mood and affect. H&P: Results Labs Labs: Short CBC 09/26/25 Range/Units 06:57 WBC 8.6 (4.5-10.0) K/mm3 Hgb 11.3 L (12.0-15.0) g/dL Hct 35.4 L (37.0-47.0) % Plt Count 164 (150-375) k/mm3 Assessment and Plan Assessment and plan (1) Term : Code(s): Z34.90 - Encounter for supervision of normal , unspecified, unspecified trimester Status: Acute Assessment and Plan: A: IUP at 40 weeks with A1DM, here for induction of labor. P: Oxytocin. Monitor blood glucose. Anticipate . (2) Diabetes mellitus, gestational: Qualifiers: Gestational diabetes mellitus control: diet-controlled Trimester: third trimester Qualified Code(s): O24.410 - Gestational diabetes mellitus in , diet controlled Code(s): O24.419 - Gestational diabetes mellitus in , unspecified control Status: Acute
--- NOTE | 2025-09-26 12:04 | S_PTH ---
PATIENT: Lizzy Madera LOC: [facility] U#:[id number] AGE/SX: 30/F ROOM: 288 RE09/26/[address]: Guanako De MD : 1995 BED: 00 DIS: 09/28/2025 SPEC #: [id number] RECD: 09/27/25 07:45 STATUS: MARINO REDebra #: [id number] DINORAH: 09/26/25 12:[address]: Guanako De DEPT: [facility] Surgical RECD BY: [address] ENTERED: 09/27/25 07:45 SP TYPE: Surgical OTHR DR: UNKNOWN,DOCTOR Tissues: A - Placenta Procedures: Hematoxylin and Eosin Stain Gross and Microscopic Level 5
[2025-09-26] MEDS: OXYTOCIN 30 UNITS/NS 500 ML 30 UNITS/500 ML BAG 125 UNITS IV CONT (12:40)
--- NOTE | 2025-09-26 13:10 | PM.OBPRVD ---
OB - Vaginal Delivery Note Procedure Delivery date: 09/26/25 Events: Gestational Diabetes Induction method: Per Pitocin Protocol Delivery augmentation: Rupture of Membranes Delivery monitor: External FHT and External Uterine Route of delivery: Laceration Description: Perineal - 2nd Degree Delivery repair: vicryl (3-0) Specimen: Yes (cord blood, placenta) Quantitative Blood Loss (ml): 350 Anesthesia type: Local (1% lidocaine) Disposition: PACU Complications: None Narrative: 30 y/o at 40 weeks gestation who presented to the hospital for induction of labor. Oxytocin was administered intravenously. Amniotomy was performed with return of clear fluid. Blood glucose was monitored and was normal throughout labor. Her labor progressed and her cervix dilated completely. She pushed with good effort and delivered the infant's head to the perineum, followed by the body. The nose and mouth were bulb suctioned. After a delay, the cord was clamped and cut. The infant was handed off the field. Cord blood was collected. The placenta delivered spontaneously and was grossly normal in appearance. The usual 3 vessel cord was noted. A second degree midline perineal laceration was sustained. This was infiltrated with 8 mL 1% lidocaine, and reapproximated using 3 0 Vicryl in the usual layered fashion. Excellent hemostasis resulted as did excellent reapproximation of the normal anatomy. Needle and instrument counts were correct. The patient was taken to recovery room in stable condition. The infant went to the nursery in stable condition. I was present and scrubbed for the entire delivery. [place] Baby Date of : 09/26/25 Time of : 12:00 Gestational Age by Date: 40 gender: Male presentation: vertex position: Left Occiput Posterior Placenta delivery description: Spontaneous and Normal Configuration Cord Vessel Description: 3 Vessels and Delayed Cord Clamping
--- NOTE | 2025-09-26 13:14 | P.DS_ITS ---
DS: Admitting Diagnosis Discharge Date 09/28/25 <Miranda Parrish APRN - Last Filed: 09/28/25 09:41> Admitting Diagnosis IUP at 40 weeks A1DM <Guanako De MD - Last Filed: 10/01/25 08:33> DS: Discharge Diagnosis Discharge Diagnosis (1) (normal spontaneous vaginal delivery): Code(s): O80 - Encounter for full-term uncomplicated delivery <Guanako De MD - Last Filed: 10/01/25 08:33> Status: Acute <Guanako De MD - Last Filed: 10/01/25 08:33> (2) Diabetes mellitus, gestational: Qualifiers: Gestational diabetes mellitus control: diet-controlled Trimester: third trimester Qualified Code(s): O24.410 - Gestational diabetes mellitus in , diet controlled <Guanako De MD - Last Filed: 10/01/25 08:33> Code(s): O24.419 - Gestational diabetes mellitus in , unspecified control <Guanako De MD - Last Filed: 10/01/25 08:33> Status: Acute <Guanako De MD - Last Filed: 10/01/25 08:33> OB - DS: Summary OB Procedures : None <Miranda Parrish APRN - Last Filed: 09/28/25 09:41> OB Procedures Intrapartum: Spontaneous Vag Delivery <Miranda Parrish APRN - Last Filed: 09/28/25 09:41> OB Procedures: : None <Miranda Parrish APRN - Last Filed: 09/28/25 09:41> Peripartum Data Laceration Description: Perineal - 2nd Degree <Guanako De MD - Last Filed: 10/01/25 08:33> Time Spent with Patient Time attestation: Total time spent providing and/or coordinating discharge services: <Guanako De MD - Last Filed: 10/01/25 08:33> Exam Psych: Affect: normal affect <Miranda Parrish APRN - Last Filed: 09/28/25 09:41> Other: Abd: fundus firm below umbilicus, nontender Perineum: healing Ext: nontender <Miranda Parrish APRN - Last Filed: 09/28/25 09:41> DS: Data Data Completed and Pending Labs on day of discharge: Labs from last 24 hours 09/26/25 09/26/25 07:52 06:57 WBC 8.6 RBC 4.04 L Hgb 11.3 L Hct 35.4 L MCV 87.6 MCH 28.0 MCHC 31.9 L RDW 17.8 H Plt Count 164 MPV 10.7 H Immature Gran % (Auto) 0.9 H Neut % (Auto) 72.2 Lymph % (Auto) 17.8 L [place] % (Auto) 7.6 Eos % (Auto) 1.2 Baso % (Auto) 0.3 Lymph # (Auto) 1.53 [place] # (Auto) 0.7 H Eos # (Auto) 0.1 Baso # (Auto) 0.0 Abs Immat Gran (auto) 0.08 H Absolute Neuts (auto) 6.2 Absolute Nucleated RBC 0.000 Nucleated RBC % 0.0 POC Capillary Glucose 76 Syphilis IgG/IgM Ab Non-reactive Blood Type AB Positive Antibody Screen Negative <Guanako eD MD - Last Filed: 10/01/25 08:33> Discharge Plan Discharge Attending physician on discharge: Guanako De <Guanako De MD - Last Filed: 10/01/25 08:33> Guanako De <Miranda Parrish APRN - Last Filed: 09/28/25 09:41> Discharging Clinician: Guanako De <Guanako De MD - Last Filed: 10/01/25 08:33> Guanako De <Miranda Parrish APRN - Last Filed: 09/28/25 09:41> Patient Disposition: Home <Guanako De MD - Last Filed: 10/01/25 08:33> Activity: pelvic rest <Guanako De MD - Last Filed: 10/01/25 08:33> pelvic rest <Miranda Parrish APRN - Last Filed: 09/28/25 09:41> Diet: regular <Guanako De MD - Last Filed: 10/01/25 08:33> regular <Miranda Parrish APRN - Last Filed: 09/28/25 09:41> Discharge Instructions: Education: Mom and Baby Guide Given to: Mother Follow-Up: Call your delivering provider's office for an appointment to be seen in: 6 Weeks Mom and baby should come to the [facility] for the follow-up appointment. Appointment Date/Time: September 29, 2025 at 9:00 am What to expect at your follow-up visit: Blood Pressure Check Call [phone] if you are unable to keep your appointment time. BREAST CARE: * Wear a snug supportive bra. * For engorgement discomfort: Breast Feeding: * Apply warm moist washcloths * Express milk as needed to relieve engorgement * Wear loose clothing Bottle Feeding: * May apply ice packs * For sore nipples: * Identify correct latch-on * Apply warm moist washcloths before and after nursing * Air dry nipples after nursing * May apply Lansinoh cream to nipples EPISIOTOMY/PERINEAL CARE: * Until bleeding stops, use your fay bottle after urinating * Change your pad frequently throughout the day * You may take sitz baths several times a day (fill your bathtub with warm water and soak for 20 minutes.) Do NOT bathe in the water * No tub baths until seen by your physician - You may shower ACTIVITY: * Rest as much as possible. * Do not exercise or lift anything heavier than your baby (such as laundry or other children.) * Avoid stairs or driving as much as possible. * Do not put anything into the vagina. No douching, tampons, or sexual activity until seen by physician. NOTIFY PHYSICIAN IF YOU HAVE ANY QUESTIONS OR IF ANY OF THE FOLLOWING SYMPTOMS OCCUR: * If your episiotomy or incision becomes red, swollen, or more painful than what you have experienced in the hospital. * If your vaginal bleeding becomes foul smelling. * If your vaginal bleeding becomes more heavy than a period or if your bleeding changes from pink to bright red. However, you may pass an occasional walnut- sized clot once or twice for the first week . * If you experience a sharp, shooting pain in you calves. * If you discover a hard, reddened area on your breast or if you experience flu- like symptoms. DIET: * Eat regular, well-balanced meals. * Drink plenty of fluids daily. If , drink to thirst. Call or return if temperature above 100.4? F, increased abdominal pain, increased vaginal bleeding or any new problems. <Guanako De MD - Last Filed: 10/01/25 08:33> Patient Language: Romansh <Guanako De MD - Last Filed: 10/01/25 08:33> Stand Alone Forms: General Discharge Information <Guanako De MD - Last Filed: 10/01/25 08:33> Follow-up/Referrals: Guanako De MD [Physician, PACKAGE CLERK] - 6 Weeks <Guanako De MD - Last Filed: 10/01/25 08:33> Discharge Medications: New ibuprofen 600 mg tablet 600 mg PO Q6H PRN (Reason: cramps) Qty: 30 0RF Continued Classic 28 mg iron- 800 mcg tablet 1 tablet PO DAILY Discontinued (DME) pen needle, diabetic [Desiree Pen Needle] 32 gauge x 5/32 needle See Rx Instructions .MEDSUPPLY Qty: 100 0RF Rx Instructions: As directed (DME) Dexcom G7 Sensor Device See Rx Instructions .MEDSUPPLY Qty: 1 4RF Rx Instructions: Apply sensor for 10 days <Guanako De MD - Last Filed: 10/01/25 08:33> Date of admission: 09/26/25 06:35 <Guanako De MD - Last Filed: 10/01/25 08:33> Primary Care Provider: UNKNOWN,DOCTOR <Guanako De MD - Last Filed: 10/01/25 08:33> Admitting Provider: Guanako De <Guanako De MD - Last Filed: 10/01/25 08:33> Attending physician on admission: Guanako De <Guanako De MD - Last Filed: 10/01/25 08:33> Condition: Stable <Guanako De MD - Last Filed: 10/01/25 08:33>
[2025-09-26] MEDS: WITCH HAZEL 40 PADS 1 PAD TOPICAL (14:38)
[2025-09-26] MEDS: BENZOCAINE 20% AER SPR (*SP) 56 GM CAN 1 SPRAY TOPICAL (14:38)
--- NOTE | 2025-09-26 15:00 | PC.NURSE ---
Patient requests information regarding her previous breast procedures. She had her breast implants removed in November of 2024 and they reconstructed her nipples at this time as well. She states that she has little sensation in her nipples. Reviewed the risks of decreased milk production when the body is unable to feel the baby stretching the nipple. Patient is choosing to breast and bottle feed. Discussed the option of pumping and she knows that there is a hospital pump available to her if desired. Encouraged continued feedings at breast and paying close attention to infant's weight and output. Educated mom that we can't know what her potential for making a full supply is unless we try. If her milk is not in by days 3-5 we will reevaluate the situation and determine a course of action. Primary RN updated.
--- NOTE | 2025-09-26 15:33 | OBPPTRN ---
1505- Patient transferred to post room #288 via . Support person present. Oriented to unit, room, information board, rooming in, admission packet and security measures. Patient verbalizes understanding.
[2025-09-27 03:00] VITALS: BP 107/72; PULSE 65; RESP 16; TEMP 36.5; O2SAT 99
[2025-09-27 04:10] LABS: Hematocrit 37.9 % (37.0-47.0); Hemoglobin 12.2 g/dL (12.0-15.0)
[2025-09-27 07:35] VITALS: BP 98/66; PULSE 66; RESP 18; TEMP 36.9; O2SAT 98
[2025-09-27] MEDS: DOCUSATE SODIUM 100 MG CAPSULE PO (09:42)
[2025-09-27] MEDS: MULTIVIT/MIN/PREN/FOL AC/IRON TABLET 1 TAB PO (09:42)
--- NOTE | 2025-09-27 14:31 | P.PNOB_ITS ---
OB - PN: Subj Subjective Date/time seen: 09/27/25 14:31 Narrative: Pain OK. She would like circumcision for her son. OB - PN: Obj Data Labs 09/27/25 03:05 Labs: Laboratory Results - last 24 hr 09/27/25 03:05 Hgb 12.2 Hct 37.9 OB - PN A/P Plan day: 1 Comments: A: PPD#1, doing well. P: Reviewed circ. Routine care. Plan home tomorrow. Exam 2 Psych: Other: AVSS ABD soft, nontender, fundus firm EXT nontender
[2025-09-27 19:47] VITALS: BP 107/59; PULSE 65; RESP 16; TEMP 36.8; O2SAT 99
[2025-09-28 07:50] VITALS: BP 102/64; PULSE 71; RESP 16; TEMP 37.2; O2SAT 99
--- NOTE | 2025-09-28 08:27 | PC.NURSE ---
Consulted with mother concerning needs and she shared her ability to independently latch infant optimally without pain but that she has been mostly giving a formula bottle because she is concerned about her history of breast surgery and if it affected her milk ducts and her supply. We discussed how she should use her breast pump if the infant does not go to breast in order to see if her milk supply will come in, she agreed. Mother is feeding appropriately for growth of and understands stimulating to eat if needed. Infant has had appropriate feedings in the last 24 hours meets the outcomes for weight, output, blood sugar and jaundice at this time. Reinforced understanding of milk production, transition of milk, signs of adequate intake, transition of stool, prevention/relief of engorgement, plugged ducts, mastitis, responsive watching for feeding cues, the different methods of stimulating to breastfeed 1-3 hours after the start of the last feeding, community resources, and when to call a provider using the resource of the feeding sheet along with the mom and baby guide. Mother voiced understanding of the information shared, is confident to continue effectively and bottle feed her at home, when to call for assistance, denies any additional assistance or education at this time. [facility] Referral was completed, signed and faxed to the [place] Office ([phone]) and original copy placed on mother's physical chart. Reported to the Primary RN.
--- NOTE | 2025-09-28 09:41 | P.PNOB_ITS ---
OB - PN: Subj Subjective Date/time seen: 09/28/25 09:41 Patient comments: pain well controlled, tolerating diet and other (Decreasing lochia.) baby status: doing well and nursing well [place] feeding status: breast and bottle feeding OB - PN: Obj Data Labs 09/27/25 03:05 OB - PN A/P Plan day: 2 Plan: discharge home Time Spent With Patient Time: Total time spent is greater than 50% in coordination of care (as documented) at patient's floor/unit and/or counseling patient: Exam 2 Const: General: cooperative, healthy appearing and comfortable Cardio: Rate: regular rate Rhythm: regular rhythm GI: Inspection: normal to inspection Auscultation: normal bowel sounds Skin: General skin exam: normal color Extrem: General: no calf tenderness Psych: Affect: normal affect Other: Abd: fundus firm below umbilicus, nontender Perineum: healing Ext: nontender
[2025-09-29 09:52] VITALS: BP 98/66; PULSE 80; RESP 18; TEMP 36.8; O2SAT 100
== END 2025-09-28 11:45 | disposition home or self-care (01) | DRG 560 ==
LOC: ANHLDR 13:14 → ANHOB2 15:09
PROVIDERS: Admitting Provider Obstetrics & Gynecology; Visit Provider Obstetrics & Gynecology
DX: O24.429 Gestational diabetes mellitus in childbirth, unspecified control (principal); Z3A.40 40 weeks gestation of pregnancy; Z37.0 Single live birth; O69.81X0 Labor and delivery complicated by cord around neck, without compression, not applicable or unspecified; O70.1 Second degree perineal laceration during delivery
CPT/HCPCS: 36415; 82948; 85014; 85018; 85025; 86593; 86850; 86900; 86901; 88307; A9270; J2590; J7120